=== PATIENT | male | born 1990 | race Caucasian/White ===

== ENCOUNTER 2019-05-31 10:47 | Emergency (ER) | payer SELFPAY ==
[~2019-05-31] VITALS: Ht 182.9 cm; Wt 97.5 kg
== END 2019-05-31 11:08 | disposition home or self-care (01) ==
LOC: ED 10:47
DX: S61.210A Laceration without foreign body of right index finger without damage to nail, initial encounter (principal); W26.8XXA Contact with other sharp object(s), not elsewhere classified, initial encounter